=== PATIENT | female | born 1940 | race Asian ===

== ENCOUNTER 2022-07-30 18:53 | Inpatient (IN) | payer OTHER, MEDICAID ==
[~2022-07-30] VITALS: Ht 147.3 cm; Wt 36.3 kg
--- NOTE | 2022-07-30 19:59 | NUR ---
PT OFFLOADED TO BED 12 BLS RUN
--- NOTE | 2022-07-30 20:00 | NUR ---
pt is on the bed 12 with the daughter
[2022-07-30 20:02] VITALS: BP 143/57
[2022-07-30] MEDS ORDERED: ONDANSETRON 4 MG/2 ML VIAL IVP ONE (20:20)
[2022-07-30] MEDS ORDERED: NACL 0.9% 1,000 ML IV ONE (20:20)
[2022-07-30 20:56] LABS: BASOPHILS % (AUTO) 0.2 % (0.0-2.0); EOSINOPHILS % (AUTO) 0.1 % (0.0-4.0); HEMATOCRIT 37.2 % (36-48); HEMOGLOBIN 12.1 g/dL (12.0-16.0); LYMPHOCYTES # (AUTO) 0.7 K/uL (2.5-16.5); LYMPHOCYTES % (AUTO) 4.1 % (20.5-51.1); MEAN CORPUSCULAR HEMOGLOBIN 26 pg (27-31); MEAN CORPUSCULAR HGB CONC 33 g/dL (33-37); MONOCYTES # (AUTO) 0.7 K/uL (0.8-1.0); MONOCYTES % (AUTO) 4.5 % (1.7-9.3); NEUTROPHILS # (AUTO) 14.5 K/uL (1.8-7.7); NEUTROPHILS % (AUTO) 91.1 % (42.2-75.2); PLATELET COUNT (AUTO) 201 K/uL (140-450); RED BLOOD CELL COUNT(AUTO) 4.59 MIL/uL (4.20-5.40); RED CELL DISTRIBUTION WIDTH 15.4 % (11.6-13.7)
[2022-07-30 21:10] LABS: ALBUMIN 3.8 g/dL (3.4-5.0); ANION GAP 12.5 (8-16); ASPARTATE AMINOTRANSFERASE 15 U/L (15-37); CARBON DIOXIDE 28.4 mmol/L (21-32); CHLORIDE 100 mmol/L (98-107); CREATININE 0.9 mg/dL (0.6-1.3); GLUCOSE 142 mg/dL (74-106); SODIUM SERUM 138 mmol/L (136-145); TOTAL BILIRUBIN 0.4 mg/dL (0.0-1.0); UREA NITROGEN, BLOOD 16 mg/dL (7-18); WHITE BLOOD COUNT (AUTO) 15.9 K/uL (4.8-10.8)
[2022-07-30 21:19] LABS: POTASSIUM 2.9 mmol/L (3.5-5.1)
[2022-07-30] MEDS ORDERED: ONDANSETRON 4 MG/2 ML VIAL ONE (21:24)
[2022-07-30] MEDS ORDERED: KCL 20 MEQ/WATER INJ PREMIX 100 ML IV ONE (22:45)
--- NOTE | 2022-07-30 23:00 | NUR ---
assisting the Er drGillina To put the new supra pubic catheter. pt is tolerated well.
[2022-07-30] MEDS ORDERED: cefTRIAXone 1,000 MG VIAL ONE (23:37)
--- NOTE | 2022-07-31 | NUR ---
Pt getting cared and hd bowel bowement and has 50 ml. bed lowered. fall precaution
--- NOTE | 2022-07-31 00:30 | NUR ---
Pt asking for snack, she said she is hungry. Snack was provided and she only ate jello.
[2022-07-31 00:32] LABS: APPEARANCE,URINE CLEAR (CLEAR); BILIRUBIN,URINE NEGATIVE (NEGATIVE); BLOOD, URINE 3+ (NEGATIVE); COLOR,URINE YELLOW (YELLOW); LEUKOCYTE ESTERASE ,URINE 2+ (NEGATIVE); NITRITE, URINE POSITIVE (NEGATIVE); UGLUCOSE NEGATIVE (NEGATIVE)
[2022-07-31 00:53] LABS: WBC,URINE 20-60 /HPF (0-5)
[2022-07-31] MEDS ORDERED: PANT20EC18 PO (03:35)
[2022-07-31] MEDS ORDERED: SYN.05 PO (03:35)
[2022-07-31] MEDS ORDERED: APIX2.5 PO (03:35)
[2022-07-31] MEDS ORDERED: CITA10TA11 PO (03:35)
[2022-07-31] MEDS ORDERED: CRAN500T4 PO (03:35)
[2022-07-31] MEDS ORDERED: ATOR40TA PO (03:35)
[2022-07-31] MEDS ORDERED: METF-1243 PO (03:35)
[2022-07-31] MEDS ORDERED: FERR325E14 PO (03:35)
[2022-07-31] MEDS ORDERED: CHOL500040 PO (03:35)
[2022-07-31] MEDS ORDERED: DIGO-80 PO (03:35)
[2022-07-31] MEDS ORDERED: ACET-2214 PO (03:35)
[2022-07-31] MEDS ORDERED: METO25TA14 PO (03:35)
[2022-07-31] MEDS ORDERED: AMLO2.5T PO (03:35)
[2022-07-31] MEDS: NACL 0.9% 1,000 ML IV SCH ×2 (03:40→16:12)
--- NOTE | 2022-07-31 04:00 | NUR ---
making round for patient, nurse cleaned the patient. She voided and had bowel movement.
--- NOTE | 2022-07-31 07:19 | NUR ---
report received from kirstin patel, transfer of care at this time
--- NOTE | 2022-07-31 08:00 | NUR ---
PT GIVEN BF, HOB ELEVATED, TOLERATING WELL
--- NOTE | 2022-07-31 08:08 | NUR ---
removed 1300cc of clear straw colored urine from urine bag
--- NOTE | 2022-07-31 08:10 | NUR ---
NO NAUSEA OR VOMITING NOTED AFTER BREAKFAST
--- NOTE | 2022-07-31 08:42 | NUR ---
PATIENT HAS BEEN SCREENED AND CATEGORIZED HIGH NUTRITION RISK. PATIENT WILL BE SEEN WITHIN 1-2 DAYS OF ADMISSION. 07/31/22-08/02/[address]
--- NOTE | 2022-07-31 09:30 | NUR ---
SPOKE TO PHONG DAUGHTER, INFORMED PT STATUS
[2022-07-31] MEDS ORDERED: ONDANSETRON 4 MG/2 ML VIAL IM/IVP PRN (10:10)
[2022-07-31] MEDS ORDERED: POTASSIUM CHLORIDE 10 MEQ TABER PO PRN (10:10)
[2022-07-31] MEDS ORDERED: HYDROcodone/APAP 7.5/325 MG 1 TAB PO PRN (10:10)
[2022-07-31] MEDS ORDERED: guaiFENesin DM 200/20 MG-10 ML 10 ML UDC PO PRN (10:10)
[2022-07-31] MEDS ORDERED: ZOLPIDEM 5 MG TAB PO PRN (10:10)
[2022-07-31] MEDS ORDERED: DOCUSATE SODIUM 100 MG GELCAP PO PRN (10:10)
[2022-07-31] MEDS ORDERED: ACETAMINOPHEN 325 MG TAB PO PRN (10:10)
[2022-07-31] MEDS: METOPROLOL 25 MG TAB PO SCH ×2 (10:15→21:00)
[2022-07-31] MEDS: amLODIPine 5 MG TAB PO SCH (10:23)
[2022-07-31] MEDS ORDERED: CRUSHER, PILL MC ONE (10:24)
--- NOTE | 2022-07-31 10:30 | NUR ---
X-Ray at bedside.
[2022-07-31] MEDS: APIXABAN 2.5 MG TAB PO SCH ×2 (10:31→21:15)
[2022-07-31] MEDS: metFORMIN 500 MG TAB PO SCH ×2 (10:31→17:11)
[2022-07-31 11:06] LABS: PROTHROMBIN TIME 10.7 secs (10.8-13.4)
[2022-07-31 11:21] LABS: AMYLASE 191 U/L (25-115); FREE T4 (FREE THYROXINE) 1.27 ng/dL (0.76-1.46); HDL CHOLESTEROL 52 mg/dL (40-60); LDL (CALC) 85 mg/dL (60-100); LIPASE 176 U/L (73-393); MAGNESIUM 1.7 mg/dL (1.8-2.4); PHOSPHORUS 2.8 mg/dL (2.5-4.9); THYROID STIMULATING HORMONE 0.73 uIU/mL (0.34-3.74); TRIGLYCERIDES 88 mg/dL (30-150)
--- NOTE | 2022-07-31 15:00 | NUR ---
P.T. NOTES P.T. EVAL COMPLETED; REFER TO EVAL FOR DETAILS.
--- NOTE | 2022-07-31 16:00 | NUR ---
PT IN BED, EYES CLOSED, PT DENIES PAIN AT THIS TIME
--- NOTE | 2022-07-31 19:20 | NUR ---
Pt report given to HARI RN. Transfer of care at this time.
[2022-07-31] MEDS: ATORVASTATIN 20 MG TAB PO SCH (21:15)
[2022-07-31] MEDS ORDERED: cefTRIAXone 1,000 MG VIAL ONE (21:38)
--- NOTE | 2022-07-31 23:31 | NUR ---
pericare provided for patient. noted to have salazar like stools. per patient has not eating anything different. pt able to turn without assitance. placed jameson pads for patient. safety measures are in place.
--- NOTE | 2022-08-01 02:00 | NUR ---
Patient appears to be resting comfortably in bed in semi fowlers with eyes closed. Vital Signs within normal limits. Respirations even and unlabored. Safety measures are in place and patient is attached to the monitor.
--- NOTE | 2022-08-01 04:02 | NUR ---
per labelling machine operator refused blood draws
[2022-08-01] MEDS: NACL 0.9% 1,000 ML IV SCH (04:40)
[2022-08-01] MEDS: LEVOTHYROXINE 0.05 MG TAB PO SCH (07:22)
--- NOTE | 2022-08-01 07:49 | NUR ---
Pt report given to Mell RAMOS. Transfer of care at this time.
[2022-08-01 08:56] LABS: BASOPHILS # (AUTO) 0.1 K/uL (0.00-0.22); BASOPHILS % (AUTO) 0.6 % (0.0-2.0); EOSINOPHILS # (AUTO) 0.1 K/uL (0-0.4); EOSINOPHILS % (AUTO) 1.6 % (0.0-4.0); HEMATOCRIT 34.3 % (36-48); HEMOGLOBIN 11.2 g/dL (12.0-16.0); LYMPHOCYTES # (AUTO) 1.8 K/uL (2.5-16.5); LYMPHOCYTES % (AUTO) 19.3 % (20.5-51.1); MEAN CORPUSCULAR HEMOGLOBIN 27 pg (27-31); MEAN CORPUSCULAR HGB CONC 33 g/dL (33-37); MEAN CORPUSCULAR VOLUME 81.4 fL (80-94); MONOCYTES # (AUTO) 0.5 K/uL (0.8-1.0); MONOCYTES % (AUTO) 5.8 % (1.7-9.3); NEUTROPHILS # (AUTO) 6.7 K/uL (1.8-7.7); NEUTROPHILS % (AUTO) 72.7 % (42.2-75.2); PLATELET COUNT (AUTO) 184 K/uL (140-450); RED BLOOD CELL COUNT(AUTO) 4.21 MIL/uL (4.20-5.40); WHITE BLOOD COUNT (AUTO) 9.2 K/uL (4.8-10.8)
[2022-08-01] MEDS: amLODIPine 5 MG TAB PO SCH (09:00)
[2022-08-01] MEDS: metFORMIN 500 MG TAB PO SCH ×2 (09:00→17:00)
[2022-08-01] MEDS: METOPROLOL 25 MG TAB PO SCH ×2 (09:00→22:18)
[2022-08-01 09:06] LABS: T4 (THYROXINE) 10.6 ug/dL (4.5-12.0)
[2022-08-01 09:29] LABS: ALBUMIN 3.3 g/dL (3.4-5.0); ANION GAP 13.2 (8-16); ASPARTATE AMINOTRANSFERASE 12 U/L (15-37); CARBON DIOXIDE 27.7 mmol/L (21-32); CHLORIDE 103 mmol/L (98-107); CREATININE 0.7 mg/dL (0.6-1.3); GLUCOSE 79 mg/dL (74-106); SODIUM SERUM 141 mmol/L (136-145); TOTAL BILIRUBIN 0.6 mg/dL (0.0-1.0); UREA NITROGEN, BLOOD 8 mg/dL (7-18)
[2022-08-01 09:40] LABS: POTASSIUM 2.9 mmol/L (3.5-5.1)
[2022-08-01] MEDS: PANTOPRAZOLE 40 MG TABEC PO SCH (09:44)
[2022-08-01] MEDS: FERROUS SULFATE 325 MG TABEC PO SCH (09:45)
[2022-08-01] MEDS: DIGOXIN 0.125 MG TAB PO SCH (09:45)
[2022-08-01] MEDS: CITALOPRAM 20 MG TAB PO SCH (09:46)
[2022-08-01] MEDS: APIXABAN 2.5 MG TAB PO SCH ×2 (09:48→22:18)
[2022-08-01] MEDS ORDERED: POTASSIUM CHLORIDE 40 MEQ in DEXTROSE 5% 1,000 ML IV SCH (10:10)
[2022-08-01] MEDS ORDERED: POTASSIUM CHLORIDE 10 MEQ TABER PO SCH (11:00)
[2022-08-01] MEDS ORDERED: POTASSIUM CHLORIDE 40 MEQ, LIDOCAINE 1% 25 MG in NACL 0.9% 250 ML IV SCH (11:30)
[2022-08-01] MEDS ORDERED: POTASSIUM CHL 20 MEQ / DEXT 5% 1,000 ML IV SCH (14:55)
--- NOTE | 2022-08-01 16:20 | NUR ---
PHYSICAL THERAPY CO-SIGN The Physical Therapy Progress Notes documented by Manager Regional have been reviewed. Reviewed/Co-Signed by: Colleen León Documentation Done by: VANESSA GLOVER PTA Addendum: 08/01/22 at 1620 by Colleen León PT Amended: Links added.
[2022-08-01 17:53] LABS: ANION GAP 13.8 (8-16); CARBON DIOXIDE 23.5 mmol/L (21-32); CHLORIDE 99 mmol/L (98-107); CREATININE 0.7 mg/dL (0.6-1.3); GLUCOSE 337 mg/dL (74-106); POTASSIUM 5.3 mmol/L (3.5-5.1); SODIUM SERUM 131 mmol/L (136-145); UREA NITROGEN, BLOOD 8 mg/dL (7-18)
[2022-08-01] MEDS: ATORVASTATIN 20 MG TAB PO SCH (22:15)
[2022-08-01] MEDS ORDERED: cefTRIAXone 1,000 MG VIAL ONE (22:58)
[2022-08-01] MEDS: DEXTROSE 5% 1,000 ML IV SCH (23:45)
[2022-08-01] MEDS ORDERED: hydrALAZINE 20 MG/ML VIAL IVP PRN (23:45)
[2022-08-01] MEDS ORDERED: hydrALAZINE 20 MG/ML VIAL ONE (23:59)
[2022-08-02] MEDS: LEVOTHYROXINE 0.05 MG TAB PO SCH (05:48)
--- NOTE | 2022-08-02 06:29 | NUR ---
PT VSS/NAD DURING SHIFT. PT REFUSING LAB DRAWS. PT REFUSED TO SLEEP AND REFUSED PO MEDS FOR SLEEP. PT DRINKS WATER, SAYS SHE IS HUNGRY, BUT REFUSES FULL LIQ DIET. PEND ROOM ASSIGNMENT
--- NOTE | 2022-08-02 08:00 | NUR ---
PATIENT ADMITTED TO [facility] FOR UTI . PT DENIES N/V/D; SKIN IS PINK/WARM/DRY; AAOX1 AND IS BEDBOUND; LUNGS CLEAR BL; HR EVEN AND REGULAR; PT DENIES ANY FEVER, CP, SOB, OR COUGH AT THIS TIME; SUPRAPUBIC CATHETER IN PLACE AND DRAINING TO GRAVITY. PATIENT STATES PAIN OF 0/10 AT THIS TIME; VSS; PATIENT POSITIONED FOR COMFORT; HOB ELEVATED; BEDRAILS UP X2; BED DOWN
--- NOTE | 2022-08-02 08:30 | NUR ---
Patient will be admitted to care of DR. WARREN. Admited to [facility]. Will go to [id number]. Belongings list completed. Report to RICHARD SINGH.
[2022-08-02 08:39] VITALS: BP 124/91
[2022-08-02] MEDS: DEXTROSE 5% 1,000 ML IV SCH (09:10)
[2022-08-02] MEDS: FERROUS SULFATE 325 MG TABEC PO SCH (09:17)
[2022-08-02] MEDS: metFORMIN 500 MG TAB PO SCH ×2 (09:18→17:04)
[2022-08-02] MEDS: METOPROLOL 25 MG TAB PO SCH ×2 (09:19→20:37)
[2022-08-02] MEDS: DIGOXIN 0.125 MG TAB PO SCH (09:19)
[2022-08-02] MEDS: PANTOPRAZOLE 40 MG TABEC PO SCH (09:20)
[2022-08-02] MEDS: amLODIPine 5 MG TAB PO SCH (09:21)
[2022-08-02] MEDS: CITALOPRAM 20 MG TAB PO SCH (09:22)
[2022-08-02] MEDS: APIXABAN 2.5 MG TAB PO SCH ×2 (09:24→20:40)
--- NOTE | 2022-08-02 13:46 | NUR ---
08/02/22 RD INITIAL ASSESSMENT COMPLETED PLEASE REFER TO NUTRITION ASSESSMENT UNDER CARE ACTIVITY FOR ESTIMATED NUTRITIONAL NEEDS. 1. CONTINUE FULL LIQUID DIET TOLERATED 2. RECOMMEND ENSURE BID TO OPTIMIZE NUTRITIONAL NEEDS - PROVIDES 700 KCAL AND [address] TO FOLLOW-UP 3-5 DAYS, MODERATE RISK REVIEWED BY PETRA SANTIZO RD
--- NOTE | 2022-08-02 15:38 | NUR ---
PHYSICAL THERAPY CO-SIGN The Physical Therapy Progress Notes documented by Staffing Manager have been reviewed. Reviewed/Co-Signed by: Colleen León Documentation Done by: VANESSA GLOVER PTA Addendum: 08/02/22 at 1539 by Colleen León PT Amended: Links added.
[2022-08-02 16:00] VITALS: BP 136/79
--- NOTE | 2022-08-02 16:20 | NUR ---
DC PLANNING ASSESSMENT COMPLETE SEE ASSESSMENT FOR DETAILS TENTATIVE PLAN IS FOR PT TO RETURN TO MR, WHEN MEDICALLY STABLE. Addendum: 08/02/22 at 1621 by Radames Pratt SS Amended: Links added.
--- NOTE | 2022-08-02 17:06 | NUR ---
ADMINISTERED DUE MED. PT TOLERATED WELL.
--- NOTE | 2022-08-02 19:29 | NUR ---
ENDORSED PT TO CHRISTIAN SCIENCE HEALER NURSE FOR CONTINUITY OF CARE. PT IN STABLE CONDITION.
--- NOTE | 2022-08-02 19:30 | NUR ---
RECEIVED ENDORSEMENT FROM FRANCISCO BERNABE, PATIENT WAS STABLE DURING SHIFT REPORT. PATIENT IS ALERT AND ORIENTED X 2. PATIENT IS FORGETFUL. PATIENT DENIES AND PAIN/DISCOMFORT. NO NOTED RESPIRATORY DISTRESS. CHEST IS RISING AND FALLING WITHOUT INCIDENT. PATIENT STATED SHE NEEDS A WALKER TO WALK BUT IT IS NOT HERE AT THIS TIME. NURSING ADVISED TO REMAIN IN BED AND IF SHE WANTS ASSISTANCE PLEASE USE THE CALL LIGHT. PATIENT WAS ABLE TO DEMONSTRATE SHE CAN USE THE CALL LIGHT FOR HELP. SIDE RAILS UP X 3 FOR SAFETY AND ADJUSTMENTS. CALL LIGHT WITHIN REACH. NURSING WILL FREQUENT THE ROOM BECAUSE PATIENT CAN BE FORGETFUL. [email or web address]
--- NOTE | 2022-08-02 19:31 | NUR ---
Patient's Plan of Care was discussed and reviewed with SRINIVASA: HEATH
[2022-08-02 20:00] VITALS: BP 121/78
[2022-08-02] MEDS: ATORVASTATIN 20 MG TAB PO SCH (20:37)
--- NOTE | 2022-08-02 23:58 | NUR ---
PATIENT TOOK OUT IV. RE-INSERTION WAS DONE X 1. 20 COLTON ON RIGHT ARM WITH WRAP GAUZE TO ENSURE PATIENT NOT TO PULL THE IV OUT AGAINE. COVERING RN WILL RESUME IV ANTIBIOTICS. [email or web address]
--- NOTE | 2022-08-03 00:53 | NUR ---
PATIENT IN BED ASLEEP. NO NOTED S/S OF PAIN/DISCOMFORT. NO NOTED S/S OF RESPIRATORY DISTRESS. CALL LIGHT WITHIN REACH. [email or web address]
--- NOTE | 2022-08-03 03:17 | NUR ---
PATIENT IN BED ASLEEP. NO NOTED S/S OF PAIN/DISCOMFORT. NO NOTED S/S OF RESPIRATORY DISTRESS. CALL LIGHT WITHIN REACH. [email or web address]
[2022-08-03 04:00] VITALS: BP 127/74
--- NOTE | 2022-08-03 05:06 | NUR ---
PATIENT WAS KEPT CLEAN AND DRY. PATIENT IN BED ASLEEP. NO NOTED S/S OF PAIN/DISCOMFORT. NO NOTED S/S OF RESPIRATORY DISTRESS. CALL LIGHT WITHIN REACH. [email or web address]
[2022-08-03] MEDS: LEVOTHYROXINE 0.05 MG TAB PO SCH (06:30)
--- NOTE | 2022-08-03 07:10 | NUR ---
ASSUMED CONTINUITY OF CARE. INITIAL ASSESSMENT DONE. A & O X2 WITH CONFUSION NOTED. RE-ORIENTED TO EVENTS AND SURROUNDINGS. KEEP COMFORTABLE ON BED. FALL PRECAUTION APPLIED. CALL LIGHT WITHIN REACH.
--- NOTE | 2022-08-03 07:22 | NUR ---
ENDORSED PATIENT CARE TO ISABEL BERNABE, PATIENT WAS STABLE DURING SHIFT REPORT. [email or web address]
[2022-08-03 07:36] LABS: BASOPHILS # (AUTO) 0.1 K/uL (0.00-0.22); BASOPHILS % (AUTO) 0.6 % (0.0-2.0); EOSINOPHILS # (AUTO) 0.2 K/uL (0-0.4); EOSINOPHILS % (AUTO) 2.8 % (0.0-4.0); HEMATOCRIT 34.1 % (36-48); HEMOGLOBIN 11.3 g/dL (12.0-16.0); LYMPHOCYTES # (AUTO) 2.2 K/uL (2.5-16.5); LYMPHOCYTES % (AUTO) 25.4 % (20.5-51.1); MEAN CORPUSCULAR HEMOGLOBIN 27 pg (27-31); MEAN CORPUSCULAR HGB CONC 33 g/dL (33-37); MEAN CORPUSCULAR VOLUME 80.7 fL (80-94); MONOCYTES # (AUTO) 0.7 K/uL (0.8-1.0); MONOCYTES % (AUTO) 7.9 % (1.7-9.3); NEUTROPHILS # (AUTO) 5.6 K/uL (1.8-7.7); NEUTROPHILS % (AUTO) 63.3 % (42.2-75.2); PLATELET COUNT (AUTO) 202 K/uL (140-450); RED BLOOD CELL COUNT(AUTO) 4.22 MIL/uL (4.20-5.40); RED CELL DISTRIBUTION WIDTH 15.2 % (11.6-13.7); WHITE BLOOD COUNT (AUTO) 8.8 K/uL (4.8-10.8)
[2022-08-03 07:37] LABS: ANION GAP 12.6 (8-16); CARBON DIOXIDE 28.5 mmol/L (21-32); CHLORIDE 100 mmol/L (98-107); GLUCOSE 124 mg/dL (74-106); POTASSIUM 3.1 mmol/L (3.5-5.1); SODIUM SERUM 138 mmol/L (136-145); UREA NITROGEN, BLOOD 10 mg/dL (7-18)
[2022-08-03 08:00] VITALS: BP 135/72
[2022-08-03] MEDS: metFORMIN 500 MG TAB PO SCH (08:09)
[2022-08-03] MEDS ORDERED: SODIUM ZIRCONIUM CYCLOSILICATE 10 GM POWD.PACK PO SCH (08:30)
[2022-08-03] MEDS: CITALOPRAM 20 MG TAB PO SCH (09:30)
[2022-08-03] MEDS: PANTOPRAZOLE 40 MG TABEC PO SCH (09:30)
[2022-08-03] MEDS: DIGOXIN 0.125 MG TAB PO SCH (09:30)
[2022-08-03] MEDS: FERROUS SULFATE 325 MG TABEC PO SCH (09:30)
[2022-08-03] MEDS: METOPROLOL 25 MG TAB PO SCH (09:31)
[2022-08-03] MEDS: amLODIPine 5 MG TAB PO SCH (09:31)
[2022-08-03] MEDS: APIXABAN 2.5 MG TAB PO SCH (09:34)
[2022-08-03] MEDS ORDERED: POTASSIUM CHLORIDE 20% 40 MEQ/15 ML UDC PO PRN (09:40)
[2022-08-03] MEDS ORDERED: CEFT1SOL1 IV (10:23)
--- NOTE | 2022-08-03 11:30 | NUR ---
PHYSICAL THERAPIST CAME FOR PT. TREATMENT.
--- NOTE | 2022-08-03 11:39 | NUR ---
DC PLANNING: PATIENT HAS A DC ORDER TO GO TO SNF FOR IV ABX AND PT/OT. HALINA SPOKE WITH PATIENT'S DAUGHTER PHONG DISCUSSED THE NEED FOR SNF AND AWAITING FOR INSURANCE. FAXED TO [facility] AND CONTRACTED FACILITY [facility]. HALINA TO FOLLOW Addendum: 08/03/22 at 1200 by Gisselle Montes RN DC PLANNING: HALINA SPOKE WITH PHONG PT'S DAUGHTER STATED OK TO DC HER MOTHER TO [facility]. CM TO FOLLOW
[2022-08-03 16:00] VITALS: BP 120/62
--- NOTE | 2022-08-03 17:52 | NUR ---
CALLED [facility] AT AND GAVE REPORT TO PRUDENCIO MATHEWS REGARDING PT. TRANSFER.
--- NOTE | 2022-08-03 18:30 | NUR ---
D/C TO [facility] VIA [facility] WITH MEDICAL TRANSPORT. IN STABLE CONDITION. INFORMED CHARGE NURSE JAQUELINE.
== END 2022-08-03 18:30 | DRG 871 ==
LOC: MED 18:53 → MMU 07-31 02:48 → MTU 08-02 05:26
PROVIDERS: ADMIT Family Medicine; ATTEND Family Medicine
PROC: 0T2BX0Z Change Drainage Device in Bladder, External Approach (ICD-10-PCS; principal; 2022-07-31)
DX: A41.9 Sepsis, unspecified organism (principal); G93.41 Metabolic encephalopathy; N39.0 Urinary tract infection, site not specified; E44.1 Mild protein-calorie malnutrition; Z68.1 Body mass index [BMI] 19.9 or less, adult; T83.090A Other mechanical complication of cystostomy catheter, initial encounter; I10 Essential (primary) hypertension; N31.9 Neuromuscular dysfunction of bladder, unspecified; E03.9 Hypothyroidism, unspecified; Z20.822 Contact with and (suspected) exposure to COVID-19; N13.9 Obstructive and reflux uropathy, unspecified; E87.6 Hypokalemia; I49.9 Cardiac arrhythmia, unspecified; E83.42 Hypomagnesemia; E78.5 Hyperlipidemia, unspecified; Z86.73 Personal history of transient ischemic attack (TIA), and cerebral infarction without residual deficits; Z88.0 Allergy status to penicillin; Z88.2 Allergy status to sulfonamides; Z93.50 Unspecified cystostomy status
CPT/HCPCS: 36415; 71045; 80048; 80053; 80162; 81001; 82150; 83036; 83605; 83690; 83735; 83880; 84100; 84436; 84439; 84443; 84479; 84484; 85025; 85610; 85730; 87040; 87081; 87086; 96361; 96374; 96375; 97110; 97112; 97116; 97530; 99285; J0360; J0696; J2001; J2405; J3480; J7030; J7060; J7070; Q0092

== ENCOUNTER 2022-08-22 00:33 | Inpatient (IN) | payer OTHER, MEDICAID ==
[~2022-08-22] VITALS: Ht 157.5 cm; Wt 54.4 kg
[2022-08-22 00:33] VITALS: BP 131/82
[~2022-08-22 00:33] MED LIST: ACET-2214 PO; AMLO2.5T PO; APIX2.5 PO; ATOR40TA PO; CEFT1SOL1 IV; CHOL500040 PO; CITA10TA11 PO; CRAN500T4 PO; DIGO-80 PO; FERR325E14 PO; METF-1243 PO; METO25TA14 PO; PANT20EC18 PO; SYN.05 PO
--- NOTE | 2022-08-22 00:34 | NUR ---
BIBA TO BED #06
--- NOTE | 2022-08-22 00:40 | NUR ---
Dr. Moscoso evaluating patient
--- NOTE | 2022-08-22 00:55 | NUR ---
BIBA [facility] for suprapubic catheter replacement and abdominal distention.
[2022-08-22] MEDS ORDERED: NACL 0.9% 1,000 ML IV ONE (01:00)
--- NOTE | 2022-08-22 01:00 | NUR ---
Attempted to irrigate catheter, no output obtained. Dr. Moscoso notified.
[2022-08-22 01:13] LABS: BASOPHILS # (AUTO) 0.1 K/uL (0.00-0.22); BASOPHILS % (AUTO) 0.8 % (0.0-2.0); EOSINOPHILS # (AUTO) 0.3 K/uL (0-0.4); EOSINOPHILS % (AUTO) 3.1 % (0.0-4.0); HEMATOCRIT 33.1 % (36-48); HEMOGLOBIN 10.8 g/dL (12.0-16.0); LYMPHOCYTES # (AUTO) 2.9 K/uL (2.5-16.5); LYMPHOCYTES % (AUTO) 29.3 % (20.5-51.1); MEAN CORPUSCULAR HEMOGLOBIN 26 pg (27-31); MEAN CORPUSCULAR HGB CONC 33 g/dL (33-37); MEAN CORPUSCULAR VOLUME 80.5 fL (80-94); MONOCYTES # (AUTO) 0.5 K/uL (0.8-1.0); MONOCYTES % (AUTO) 5.2 % (1.7-9.3); NEUTROPHILS % (AUTO) 61.6 % (42.2-75.2); PLATELET COUNT (AUTO) 248 K/uL (140-450); RED BLOOD CELL COUNT(AUTO) 4.11 MIL/uL (4.20-5.40); RED CELL DISTRIBUTION WIDTH 14.7 % (11.6-13.7); WHITE BLOOD COUNT (AUTO) 9.8 K/uL (4.8-10.8)
--- NOTE | 2022-08-22 01:30 | NUR ---
Pt care provided, diaper and linens changed
[2022-08-22 01:32] LABS: ALBUMIN 3.3 g/dL (3.4-5.0); ANION GAP 12.6 (8-16); ASPARTATE AMINOTRANSFERASE 30 U/L (15-37); CARBON DIOXIDE 27.6 mmol/L (21-32); CHLORIDE 101 mmol/L (98-107); CREATININE 0.9 mg/dL (0.6-1.3); GLUCOSE 101 mg/dL (74-106); POTASSIUM 3.2 mmol/L (3.5-5.1); SODIUM SERUM 138 mmol/L (136-145); UREA NITROGEN, BLOOD 15 mg/dL (7-18)
[2022-08-22 01:57] LABS: TOTAL BILIRUBIN 0.4 mg/dL (0.0-1.0)
--- NOTE | 2022-08-22 03:00 | NUR ---
Dr. Moscoso reassessing catheter at this time
--- NOTE | 2022-08-22 03:46 | NUR ---
PT WENT TO CT.
--- NOTE | 2022-08-22 03:58 | NUR ---
PATIENT BACK FROM CT.
--- NOTE | 2022-08-22 05:30 | NUR ---
Patient care provided, diapers and linens changed. No c/o discomfort at this time
[2022-08-22] MEDS ORDERED: SODIUM PHOSPHATE 118 ML ENEM RC ONE (06:25)
--- NOTE | 2022-08-22 07:38 | NUR ---
Report given to Braxton RAMOS
[2022-08-22] MEDS ORDERED: ACETAMINOPHEN 325 MG TAB PO PRN (11:15)
[2022-08-22] MEDS ORDERED: HYDROcodone/APAP 7.5/325 MG 1 TAB PO PRN (11:15)
[2022-08-22] MEDS ORDERED: ONDANSETRON 4 MG/2 ML VIAL IVP PRN (11:15)
--- NOTE | 2022-08-22 11:40 | NUR ---
RESTING IN BED, UNDERSTANDS NPO FOR NOW AFTER ASKING FOR COFFEE. DENIES ANY PAIN, NO BLADDER DISTENTION NOTED
[2022-08-22] MEDS: NACL 0.9% 1,000 ML IV SCH (11:42)
--- NOTE | 2022-08-22 12:19 | NUR ---
DR PANCHAL AWARE PER PHONE, PT STILL NO URINE OUTPUT, NO BLADDER DISTENTION NOTED.
--- NOTE | 2022-08-22 14:35 | NUR ---
RECEIVED PT FROM ERGillian PRIDE GIVEN BY TOÑA RAMOS. TRANSPORTED VIA GURNEY. PLACED IN BED COMFORTABLY. ALERT AND VERBALLY RESPONSIVE X 4. RESP. EVEN AND UNLABORED. SKIN INTACT. SUPRAPUBIC CATHETER INTACT, DRAINING SMALL AMOUNT OF YELLOW URINE. NO C/O PAIN OR DISCOMFORT. CALL LIGHT KEPT WITHIN REACH.
--- NOTE | 2022-08-22 15:34 | NUR ---
UROLOGY CONSULT ON PHONE, MADE AWARE OF 30 ML OUTPUT ON SUPRAPUBIC CATHETER DURING TRANSPORT TO ROOM. CALL TRANSFERRED TO FLOOR NURSE
--- NOTE | 2022-08-22 15:36 | NUR ---
RECEIVED CALLED FROM UROLOGY [facility] CERTIFIED CONCIERGE, STATES THAT SHE IS COMING TOMORROW TO RE INSERT SUPRAPUBIC CATHETER. INFORMED THAT URINE OUTPUT 30 CC.
[2022-08-22 15:49] LABS: AMYLASE 171 U/L (25-115); FREE T4 (FREE THYROXINE) 1.22 ng/dL (0.76-1.46); HDL CHOLESTEROL 53 mg/dL (40-60); LIPASE 150 U/L (73-393); MAGNESIUM 1.9 mg/dL (1.8-2.4); PHOSPHORUS 3.3 mg/dL (2.5-4.9)
[2022-08-22 15:54] LABS: PROTHROMBIN TIME 10.3 secs (10.8-13.4)
[2022-08-22 16:00] VITALS: BP 120/66
--- NOTE | 2022-08-22 16:15 | NUR ---
STOOL SPECIMEN AND MRSA SWAB COLLECTED. SEND TO LAB AWAITING FOR RESULT.
--- NOTE | 2022-08-22 16:34 | NUR ---
DR. PANCHAL NOTIFIED POTASSIUM 3.2 ON 08/21/22. RECEIVED NEW ORDER KCL 40 MEQ PO PRN. ORDER NOTED AND CARRIED OUT.
[2022-08-22 16:38] LABS: CHOL/HDL RATIO 2.2 (1-4.5); TRIGLYCERIDES 104 mg/dL (30-150)
[2022-08-22 16:39] LABS: LDL (CALC) 42 mg/dL (60-100)
[2022-08-22] MEDS ORDERED: POTASSIUM CHLORIDE 10 MEQ TABER PO PRN (16:40)
--- NOTE | 2022-08-22 18:06 | NUR ---
PRN K DUR PO WAS GIVEN FOR POTASSIUM 3.2. TOLERATING WELL.
--- NOTE | 2022-08-22 19:15 | NUR ---
BEDSIDE REPORT GIVEN TO VINOD FOR CONTINUITY OF CARE. ENDORSED TO VINOD 1ST STOOL SPECIMEN COLLECTED (FORMED STOOL). REMAINS STABLE.
--- NOTE | 2022-08-22 19:20 | NUR ---
RECEIVED PATIENT LYING ON THE BED, IS AWAKE, ALERT AND ORIENTED X4, NO SIGNS OF DISTRESS NOTED, DENIES PAIN, NS RUNNING @50ML/HR ON RIGHT FOREARM ACCESS SITE, G20. CALL LIGHT WITHIN REACH, BED IN LOW AND LOCKED POSITION.
[2022-08-22 20:00] VITALS: BP 145/78
[2022-08-22] MEDS: DOCUSATE SODIUM 100 MG GELCAP PO SCH (20:28)
[2022-08-22] MEDS: metFORMIN 500 MG TAB PO SCH (20:28)
[2022-08-22] MEDS: METOPROLOL 25 MG TAB PO SCH (20:29)
[2022-08-22] MEDS: ATORVASTATIN 20 MG TAB PO SCH (20:29)
[2022-08-22] MEDS: APIXABAN 2.5 MG TAB PO SCH (20:31)
--- NOTE | 2022-08-22 20:32 | NUR ---
SCHEDULED MEDICATIONS GIVEN ORDERED. METFORMIN NOT GIVEN, BLOOD SUGAR 76 MG/DL, COLACE NOT GIVEN, FROM REPORT PATIENT TO R/O C-DIFF. CALL LIGHT WITHIN REACH.
--- NOTE | 2022-08-22 22:45 | NUR ---
CT OF THE CHEST WITH CONTRAST DONE.
[2022-08-23] VITALS: BP 148/69
[2022-08-23 04:00] VITALS: BP 168/75
--- NOTE | 2022-08-23 04:10 | NUR ---
PATIENT IS ASLEEP, NO SIGNS OF PAIN, NO DISTRESS NOTED. ALL SAFETY MEASURES IN PLACE.
[2022-08-23] MEDS: NACL 0.9% 1,000 ML IV SCH (06:19)
[2022-08-23 07:07] LABS: BASOPHILS # (AUTO) 0.1 K/uL (0.00-0.22); BASOPHILS % (AUTO) 1.2 % (0.0-2.0); EOSINOPHILS # (AUTO) 0.5 K/uL (0-0.4); EOSINOPHILS % (AUTO) 6.4 % (0.0-4.0); HEMATOCRIT 32.9 % (36-48); HEMOGLOBIN 10.6 g/dL (12.0-16.0); LYMPHOCYTES # (AUTO) 2.2 K/uL (2.5-16.5); LYMPHOCYTES % (AUTO) 30.2 % (20.5-51.1); MEAN CORPUSCULAR HEMOGLOBIN 26 pg (27-31); MEAN CORPUSCULAR HGB CONC 32 g/dL (33-37); MEAN CORPUSCULAR VOLUME 81.1 fL (80-94); MONOCYTES # (AUTO) 0.5 K/uL (0.8-1.0); MONOCYTES % (AUTO) 6.7 % (1.7-9.3); NEUTROPHILS % (AUTO) 55.5 % (42.2-75.2); PLATELET COUNT (AUTO) 239 K/uL (140-450); RED BLOOD CELL COUNT(AUTO) 4.05 MIL/uL (4.20-5.40); WHITE BLOOD COUNT (AUTO) 7.1 K/uL (4.8-10.8)
[2022-08-23 07:12] LABS: ANION GAP 9.7 (8-16); CARBON DIOXIDE 25.4 mmol/L (21-32); CHLORIDE 103 mmol/L (98-107); CREATININE 0.6 mg/dL (0.6-1.3); GLUCOSE 83 mg/dL (74-106); POTASSIUM 4.1 mmol/L (3.5-5.1); SODIUM SERUM 134 mmol/L (136-145); UREA NITROGEN, BLOOD 12 mg/dL (7-18)
[2022-08-23 07:27] LABS: MAGNESIUM 1.8 mg/dL (1.8-2.4); PHOSPHORUS 2.3 mg/dL (2.5-4.9)
--- NOTE | 2022-08-23 07:29 | NUR ---
ENDORSED PATIENT TO DAY NURSE FOR CONTINUITY OF CARE. PATIENT IN STABLE CONDITION.
[2022-08-23 08:00] VITALS: BP 170/85
--- NOTE | 2022-08-23 08:15 | NUR ---
UROLOGIST ARRIVED ON UNIT AT ABOUT 0809 TO REPLACE CATHETER. CATHETER KIT PROVIDED AND HANDED OVER TO UROLOGIST. UROLOGIST TO REPLACE CATHETER NOW.
[2022-08-23] MEDS: PANTOPRAZOLE 40 MG INJ VIAL IVP SCH (08:45)
[2022-08-23] MEDS: DOCUSATE SODIUM 100 MG GELCAP PO SCH ×2 (08:47→21:03)
[2022-08-23] MEDS: CITALOPRAM 20 MG TAB PO SCH (08:47)
[2022-08-23] MEDS: APIXABAN 2.5 MG TAB PO SCH ×2 (08:49→21:06)
[2022-08-23] MEDS: FERROUS SULFATE 325 MG TABEC PO SCH (08:49)
[2022-08-23] MEDS: metFORMIN 500 MG TAB PO SCH ×2 (08:50→21:00)
[2022-08-23] MEDS: METOPROLOL 25 MG TAB PO SCH ×2 (08:50→21:03)
[2022-08-23] MEDS: amLODIPine 5 MG TAB PO SCH (08:52)
[2022-08-23] MEDS ORDERED: LEVOTHYROXINE 0.05 MG TAB PO SCH (09:00)
--- NOTE | 2022-08-23 09:04 | NUR ---
PATIENT HAS BEEN SCREENED AND CATEGORIZED LOW NUTRITION RISK. PATIENT WILL BE SEEN WITHIN 7 DAYS OF ADMISSION. 08/29/22 REVIEWED BY PETRA SANTIZO RD
[2022-08-23] MEDS: DIGOXIN 0.125 MG TAB PO SCH (10:10)
[2022-08-23 12:00] VITALS: BP 145/76
[2022-08-23] MEDS ORDERED: SODIUM PHOSPHATE 15 MMOLE in NACL 0.9% 250 ML IV SCH (14:30)
--- NOTE | 2022-08-23 18:45 | NUR ---
PT GIVEN CARDIAC DIET BY DR PANCHAL. DIETARY PREPPED IT AND DELIVERED TO PT. PT REQUESTED COFFEE WITH CREAMER AND WAS GIVEN CUP OF COFFEE W CREAMER AND TWO SUGARS (PER PT REQUEST). PT EAGERLY EATING AND APPEARS VERY HAPPY W MEAL.
--- NOTE | 2022-08-23 19:10 | NUR ---
RECEIVED PATIENT FOR CONTINUITY OF CARE. PATIENT EATING AT THIS TIME, IS ALERT AND ORIENTED, PATIENT DENIES PAIN, NO SIGNS OF DISTRESS NOTED. ALL SAFETY MEASURES IN PLACE.
[2022-08-23 20:00] VITALS: BP 134/81
[2022-08-23] MEDS: ATORVASTATIN 20 MG TAB PO SCH (21:03)
--- NOTE | 2022-08-23 21:10 | NUR ---
SCHEDULED MEDICATIONS GIVEN ORDERED.
--- NOTE | 2022-08-23 22:00 | NUR ---
CHECKED ON PATIENT, IS AWAKE, SNACKS GIVEN PER PATIENT'S REQUEST. SUPRAPUBIC CATHETER DRAINING CLEAR YELLOW URINE TO BAG. CALL LIGHT WITHIN REACH.
[2022-08-23 23:17] LABS: APPEARANCE,URINE CLOUDY (CLEAR); BILIRUBIN,URINE NEGATIVE (NEGATIVE); BLOOD, URINE 2+ (NEGATIVE); COLOR,URINE YELLOW (YELLOW); LEUKOCYTE ESTERASE ,URINE 3+ (NEGATIVE); NITRITE, URINE POSITIVE (NEGATIVE); PH,URINE 5.5 (5.0-9.0); UGLUCOSE NEGATIVE (NEGATIVE)
[2022-08-23 23:37] LABS: BARBITURATE, URINE NEGATIVE ng/ml (NEG <=200); BENZODIAZEPINE, URINE NEGATIVE ng/mL (NEG <=200); CANNABINOID, URINE NEGATIVE ng/mL (NEG <=50); COCAINE, URINE NEGATIVE ng/mL (NEG <=300); OPIATE, URINE NEGATIVE ng/mL (NEG <=2000); PHENCYCLIDINE SCREEN,URINE NEGATIVE ng/mL (NEG <=25)
[2022-08-23 23:41] LABS: RBC,URINE 0-5 /HPF (0-5); WBC,URINE TOO MANY TO COUNT /HPF (0-5)
[2022-08-24] VITALS (7 sets, daily range): BP systolic 110–145; BP diastolic 52–69
--- NOTE | 2022-08-24 00:10 | NUR ---
VITALS TAKEN, T 97.5, P 55, BP 124/66, RESP 16 AND O2 SATS 96% ON ROOM AIR. BEDSIDE CARE DONE, NO SIGNS OF DISTRESS NOTED, PATIENT DENIES PAIN. ALL SAFETY MEASURES IN PLACE.
[2022-08-24] MEDS: NACL 0.9% 1,000 ML IV SCH (03:15)
[2022-08-24 07:27] LABS: BASOPHILS # (AUTO) 0.1 K/uL (0.00-0.22); EOSINOPHILS # (AUTO) 0.3 K/uL (0-0.4); EOSINOPHILS % (AUTO) 4.4 % (0.0-4.0); HEMATOCRIT 30.4 % (36-48); HEMOGLOBIN 10.1 g/dL (12.0-16.0); LYMPHOCYTES # (AUTO) 2.6 K/uL (2.5-16.5); LYMPHOCYTES % (AUTO) 33.6 % (20.5-51.1); MEAN CORPUSCULAR HEMOGLOBIN 27 pg (27-31); MEAN CORPUSCULAR HGB CONC 33 g/dL (33-37); MEAN CORPUSCULAR VOLUME 80.7 fL (80-94); MONOCYTES # (AUTO) 0.4 K/uL (0.8-1.0); MONOCYTES % (AUTO) 5.7 % (1.7-9.3); NEUTROPHILS # (AUTO) 4.3 K/uL (1.8-7.7); NEUTROPHILS % (AUTO) 55.3 % (42.2-75.2); PLATELET COUNT (AUTO) 234 K/uL (140-450); RED BLOOD CELL COUNT(AUTO) 3.77 MIL/uL (4.20-5.40); RED CELL DISTRIBUTION WIDTH 14.6 % (11.6-13.7); WHITE BLOOD COUNT (AUTO) 7.7 K/uL (4.8-10.8)
--- NOTE | 2022-08-24 07:28 | NUR ---
ENDORSED PATIENT TO DAY NURSE FOR CONTINUITY OF CARE. NEEDS MET THROUGHOUT THE SHIFT. PATIENT IN STABLE CONDITION.
[2022-08-24 07:31] LABS: ANION GAP 11.8 (8-16); CARBON DIOXIDE 25.2 mmol/L (21-32); CHLORIDE 100 mmol/L (98-107); CREATININE 0.9 mg/dL (0.6-1.3); GLUCOSE 82 mg/dL (74-106); SODIUM SERUM 133 mmol/L (136-145); UREA NITROGEN, BLOOD 22 mg/dL (7-18)
--- NOTE | 2022-08-24 07:37 | NUR ---
GOT REPORT FROM THE NIGHT NURSE, PT SLEEPING NO SOB.[id number]
[2022-08-24 07:51] LABS: MAGNESIUM 1.8 mg/dL (1.8-2.4); PHOSPHORUS 5.4 mg/dL (2.5-4.9)
[2022-08-24] MEDS: metFORMIN 500 MG TAB PO SCH ×2 (07:57→12:08)
[2022-08-24] MEDS: FERROUS SULFATE 325 MG TABEC PO SCH (08:30)
[2022-08-24] MEDS: CITALOPRAM 20 MG TAB PO SCH (08:31)
[2022-08-24] MEDS: DOCUSATE SODIUM 100 MG GELCAP PO SCH (08:31)
[2022-08-24] MEDS: DIGOXIN 0.125 MG TAB PO SCH (08:31)
[2022-08-24] MEDS: APIXABAN 2.5 MG TAB PO SCH (08:32)
[2022-08-24] MEDS: PANTOPRAZOLE 40 MG INJ VIAL IVP SCH (08:33)
[2022-08-24] MEDS: METOPROLOL 25 MG TAB PO SCH (08:36)
[2022-08-24] MEDS: amLODIPine 5 MG TAB PO SCH (08:36)
--- NOTE | 2022-08-24 09:57 | NUR ---
PT HR 47 SO HELD MED,AMILODIPINE,METOPROLOL. [id number]
[2022-08-24] MEDS ORDERED: LEVO750T75 PO (11:49)
--- NOTE | 2022-08-24 14:28 | NUR ---
DC PLANNING ASSESSMENT COMPLETE PLEASE REFER TO ASSESSMENT FOR ADDITIONAL DETAILS PT WAITING ON LUNCH AND PROVIDED SW WITH PERMISSION TO CALL [facility] TO GATHER COLLAT INFORMATION PT IS AN 82 YR OLD FEMALE ADMITTED TO [facility] FROM [facility] WITH DX OF URINARY OBSTRUCTION. PT HAS PAST MEDICAL HX OF CVA, DIABETES, NEUROGENIC BLADDER, HYPERTENSION, UTI, HYPOKALEMIA, AND DEPRESSION OUTREACHED TO [facility] ([facility]) WHO REPORTS POA ON FILE WITH FACILITY. [facility] REPORTS COPY ON FILE IS DIFFICULT TO READ HOWEVER, WILL ATTEMPT TO SEND COPY TO ADD TO PTS CHART. PT IS REPORTED BE WC BOUND AND REQUIRES ASSISTANCE WITH ADLS THAT [facility] STAFF AIDS WITH. PT CURRENTLY RECEIVING SKILLED CARE; PHYSICAL THERAPY WITH [facility]; ADMISSION DATE 08/03/22 ANDREW REPORTS DC PLAN IS FOR PT TO RETURN TO [facility] TO CONTINUE WITH SKILLED CARE; PHYSICAL THERAPY, ONCE MEDICALLY STABLE. Addendum: 08/24/22 at 1429 by Radames WATKINS Amended: Links added.
--- NOTE | 2022-08-24 16:14 | NUR ---
FABIAN PANCHAL RECEIVED ORDER FOR PT TO GO BACK TO [facility]. FAXED TO [facility] LOC[facility] AT [address] [place] [address]. SPOKE WITH ANDREW AT [facility] INFORMED ME PT WAS ACCEPTED BACK AND WILL BE GOING TO ROOM 35-B UNDER DR CROWLEY. SNF AUTH #[id number] AND TRANSPORTATION AUTH#[id number] GIVEN BY CHRISTINE AT [facility] TRANSPORTATION SET UP WITH [facility] WITH A 1420-0730 CLINICAL EDITOR TIME. CHARGE NURSE ISABEL AND DAUGHTER PHONG AWARE OF THE ABOVE INFORMATION.
--- NOTE | 2022-08-24 19:09 | NUR ---
pt discharged to [facility] , iv and id band removed the discharge instruction given. pt left with transporter alert and oriented with out any discomfort.[email or web address]
[2022-08-25] MEDS ORDERED: LEVOTHYROXINE 0.05 MG TAB PO SCH (07:30)
== END 2022-08-24 19:05 | DRG 699 ==
LOC: MED 00:33 → MTU 06:37
PROC: 0T9B30Z Drainage of Bladder with Drainage Device, Percutaneous Approach (ICD-10-PCS; principal; 2022-08-22)
DX: N32.0 Bladder-neck obstruction (principal); G95.89 Other specified diseases of spinal cord; N13.39 Other hydronephrosis; R33.9 Retention of urine, unspecified; K59.00 Constipation, unspecified; E88.09 Other disorders of plasma-protein metabolism, not elsewhere classified; E87.6 Hypokalemia; D64.9 Anemia, unspecified; E11.9 Type 2 diabetes mellitus without complications; I10 Essential (primary) hypertension; Z20.822 Contact with and (suspected) exposure to COVID-19; Z86.73 Personal history of transient ischemic attack (TIA), and cerebral infarction without residual deficits; Z88.0 Allergy status to penicillin; Z88.2 Allergy status to sulfonamides; Z93.50 Unspecified cystostomy status; N31.9 Neuromuscular dysfunction of bladder, unspecified
CPT/HCPCS: 36415; 71045; 71260; 80048; 80053; 80162; 80305; 81001; 82140; 82150; 82948; 83036; 83605; 83690; 83735; 83880; 84100; 84439; 84443; 84484; 85025; 85610; 85730; 87040; 87081; 87086; 93005; 96360; 97163-GP; 97530; 99285; C9113; J7030; Q0092; Q9967

== ENCOUNTER 2022-09-15 17:37 | Emergency (ER) | payer OTHER, MEDICAID ==
[~2022-09-15] VITALS: Ht 147.3 cm; Wt 40.8 kg
[~2022-09-15 17:37] MED LIST changes: +LEVO750T75 PO
[2022-09-15 17:43] VITALS: BP 155/77
--- NOTE | 2022-09-15 17:43 | NUR ---
BIBA BLS TO ER BED 5
--- NOTE | 2022-09-15 18:25 | NUR ---
82 y/o female biba from [facility] for suprapubic catheter not working. Patient is noted with a suprapubic catheter in place. Patient denies any pain or discomfort at this time. Medical History: CVA, DM, HTN, Depression, Chronic Pascual Catheter, AFIB, Hyperthyroidism, Anxiety, GERD, Pelvic Fracture ALLERGY: PENICILLINS, SULFA ANTIBIOTIC, AMOXICILLIN
--- NOTE | 2022-09-15 19:21 | NUR ---
Report given to SRINIVASA Herring for transfer of care.
--- NOTE | 2022-09-15 19:49 | NUR ---
PT IS IN BED RESTING REQUESTING FOOD. A&OX4. DENIES ANY PAIN AT THIS TIME. HAS A SUPERPUBIC CATH IS PATENT. NO DRAINAGE NOTED. HOB ELEVATED. ON CYBER FORENSIC SPECIALIST. RESP EVEN AND UNLABORED. BED AT LOWEST POSITION PCN SULFA
[2022-09-15 20:05] LABS: APPEARANCE,URINE CLEAR (CLEAR); BILIRUBIN,URINE 2+ (NEGATIVE); BLOOD, URINE 3+ (NEGATIVE); COLOR,URINE YELLOW (YELLOW); LEUKOCYTE ESTERASE ,URINE TRACE (NEGATIVE); NITRITE, URINE POSITIVE (NEGATIVE); PH,URINE >=9.0 (5.0-9.0); UGLUCOSE NEGATIVE (NEGATIVE)
--- NOTE | 2022-09-15 20:11 | NUR ---
URINE COLLECTED AND SENT TO LAB
[2022-09-15 20:18] LABS: RBC,URINE 11-20 (MOD) /HPF (0-5); WBC,URINE 0-5 /HPF (0-5)
--- NOTE | 2022-09-15 22:20 | NUR ---
PT RETURN FROM RADIOLOGY
--- NOTE | 2022-09-15 22:36 | NUR ---
FOOD PROVIDED TO PT .
--- NOTE | 2022-09-15 22:50 | NUR ---
DR CHRISTOPHER AT BEDSIDE FLUSHED SUPRAPUBIC CATH. PT TOLERATED WELL
--- NOTE | 2022-09-16 02:52 | NUR ---
PT RESTING IN BED ON BEDSIDE COMMUNITY BOARD MEMBER. PT IS UP FOR DISPO IS A RESDIENT FROM [facility] WILL DC IN AM. PT HAS BEEN INCONT. DIAPER CHECKED AND CLEANED. SUPRAPUBIC CATH DISLODGED, DR CHRISTOPHER IS AWARE AND WILL REINSERT
--- NOTE | 2022-09-16 06:54 | NUR ---
TRANSPORTION TO SET UP IN AM. PT IS AWARE OF TRANSPORT.
--- NOTE | 2022-09-16 11:09 | NUR ---
EMPTED 425 ML OF YELLOW CLEAR URINE.
[2022-09-16 12:56] VITALS: BP 158/77
--- NOTE | 2022-09-16 12:58 | NUR ---
Patient discharged with v/s stable. Written and verbal after care instructions given and explained. Patient verbalized understanding. Ambulance Transport with to half-way. All questions addressed prior to discharge. Advised to follow up with PMD.
--- NOTE | 2022-09-16 13:12 | NUR ---
The patient's care was reviewed and supervised by Danisha Aburto, RN, RN.
--- NOTE | 2022-09-16 13:12 | NUR ---
The patient's care was reviewed and supervised by [place] [facility] ED, RN.
== END 2022-09-16 12:50 | disposition home or self-care (01) ==
LOC: MED 17:37
DX: T83.098A Other mechanical complication of other urinary catheter, initial encounter (principal); E11.9 Type 2 diabetes mellitus without complications; I10 Essential (primary) hypertension; E05.90 Thyrotoxicosis, unspecified without thyrotoxic crisis or storm; F41.9 Anxiety disorder, unspecified; K21.9 Gastro-esophageal reflux disease without esophagitis; I48.91 Unspecified atrial fibrillation; Z86.73 Personal history of transient ischemic attack (TIA), and cerebral infarction without residual deficits; Z79.899 Other long term (current) drug therapy; Z79.01 Long term (current) use of anticoagulants; Z79.2 Long term (current) use of antibiotics; Z88.0 Allergy status to penicillin; Z88.2 Allergy status to sulfonamides; Y84.6 Urinary catheterization as the cause of abnormal reaction of the patient, or of later complication, without mention of misadventure at the time of the procedure
CPT/HCPCS: 81001; 87086; 99285

== ENCOUNTER 2022-11-04 01:15 | Emergency (ER) | payer OTHER, MEDICAID ==
[~2022-11-04] VITALS: Ht 157.5 cm; Wt 40.8 kg
[2022-11-04 01:24] VITALS: BP 167/83
--- NOTE | 2022-11-04 01:25 | NUR ---
PT [facility] ALS ER BED 7
--- NOTE | 2022-11-04 01:30 | NUR ---
82 Y/O F presents with a mechanical fall from [facility] x1hr ago. pt is A&Ox4, skin intact, respirations even and unlabored. pt denies any pain, but states feeling a little weak. pt denies any nvd or headaches. pt has a valdez upon arrival, non ambulatory, wheelchair assisted. pmh- non stemi NC, htn, DM\ allergies- penicillins, sulfas, antibiotics meds- eliquis
--- NOTE | 2022-11-04 02:41 | NUR ---
Patient being evaluated by physician at bedside.
--- NOTE | 2022-11-04 02:58 | NUR ---
pt to CT
--- NOTE | 2022-11-04 06:39 | NUR ---
[facility] opens at 0800. waiting to setup transport.
--- NOTE | 2022-11-04 07:21 | NUR ---
Pt report given to Anamaria BERNABE. Transfer of care at this time.
--- NOTE | 2022-11-04 07:24 | NUR ---
Report recieved from SRINIVASA Choi for transfer of care.
--- NOTE | 2022-11-04 08:07 | NUR ---
[facility] [place] [place] DO TRANSPORTATION DUE TO NO WHEELCHAIR ROOM.
--- NOTE | 2022-11-04 10:15 | NUR ---
Patient is laying in bed, all needs met by staff. Vital signs stable.
[2022-11-04 12:12] VITALS: BP 127/82
--- NOTE | 2022-11-04 12:12 | NUR ---
Spoke to vIon at [facility] to let her know that patient is being discharged.
--- NOTE | 2022-11-04 12:12 | NUR ---
Patient discharged with v/s stable. Written and verbal after care instructions given. Patient verbalized understanding. Ambulance Transport with to senior care. All questions addressed prior to discharge. Advised to follow up with PMD.
--- NOTE | 2022-11-04 14:11 | NUR ---
The patient's care was reviewed and supervised by [facility] RN, RN.
== END 2022-11-04 12:12 | disposition home or self-care (01) ==
LOC: MED 01:15
DX: S09.90XA Unspecified injury of head, initial encounter (principal); I48.91 Unspecified atrial fibrillation; E11.9 Type 2 diabetes mellitus without complications; I10 Essential (primary) hypertension; F32.9 Major depressive disorder, single episode, unspecified; Z86.73 Personal history of transient ischemic attack (TIA), and cerebral infarction without residual deficits; Z79.899 Other long term (current) drug therapy; Z79.01 Long term (current) use of anticoagulants; Z79.1 Long term (current) use of non-steroidal anti-inflammatories (NSAID); Z79.2 Long term (current) use of antibiotics; Z88.0 Allergy status to penicillin; Z88.2 Allergy status to sulfonamides; W06.XXXA Fall from bed, initial encounter; Y93.89 Activity, other specified; Y92.89 Other specified places as the place of occurrence of the external cause; Y99.8 Other external cause status
CPT/HCPCS: 70450; 72125; 99284

== ENCOUNTER 2023-02-14 15:53 | Emergency (ER) | payer OTHER, MEDICAID ==
[~2023-02-14] VITALS: Ht 157.5 cm; Wt 63.5 kg
[2023-02-14 15:59] VITALS: BP 144/62; PULSE 57; RESP 17; TEMP 97.6; O2SAT 96
[2023-02-14 19:22] VITALS: O2SAT 96
== END 2023-02-14 20:06 ==
LOC: MED 15:53
DX: T83.028A Displacement of other urinary catheter, initial encounter (principal); I11.9 Hypertensive heart disease without heart failure; E11.9 Type 2 diabetes mellitus without complications; F03.90 Unspecified dementia, unspecified severity, without behavioral disturbance, psychotic disturbance, mood disturbance, and anxiety; Z86.73 Personal history of transient ischemic attack (TIA), and cerebral infarction without residual deficits; Z88.2 Allergy status to sulfonamides; Z88.0 Allergy status to penicillin; Z88.1 Allergy status to other antibiotic agents; Z79.4 Long term (current) use of insulin; Z79.899 Other long term (current) drug therapy; Y92.89 Other specified places as the place of occurrence of the external cause
CPT/HCPCS: 51705; 99284